=== PATIENT | male | born 1940 ===

== ENCOUNTER 2017-12-06 10:24 | Outpatient (CLI) | payer OTHER ==
[~2017-12-06] VITALS: Ht 152.4 cm; Wt 65.8 kg
== END 2017-12-06 10:40 | disposition home or self-care (01) ==
LOC: OFIC 805 10:24
DX: H60.21 Malignant otitis externa, right ear (principal); H61.23 Impacted cerumen, bilateral

== ENCOUNTER 2017-12-13 11:05 | Outpatient (CLI) | payer OTHER ==
[~2017-12-13] VITALS: Ht 152.4 cm; Wt 65.8 kg
== END 2017-12-13 11:20 | disposition home or self-care (01) ==
LOC: OFIC 805 11:05
DX: H60.21 Malignant otitis externa, right ear (principal); H61.23 Impacted cerumen, bilateral; L08.89 Other specified local infections of the skin and subcutaneous tissue